=== PATIENT | male | born 1940 | race Caucasian/White ===

== ENCOUNTER → 2017-10-15 | Day surgery (SDC) | payer MEDICARE ==
[2017-10-14 11:07] VITALS: BMI 30.7
--- NOTE | 2017-10-15 16:03 | EKG ---
Test Reason : PREOP CARDIOVERSION Blood Pressure : / mmHG Vent. Rate : 066 BPM Atrial Rate : 066 BPM P-R Int : 274 ms QRS Dur : 112 ms QT Int : 434 ms P-R-T Axes : 067 045 070 degrees QTc Int : 454 ms Sinus rhythm with 1st degree A-V block with Premature atrial complexes Incomplete right bundle branch block Abnormal ECG Confirmed by IAIN ALBARADO ([id number]) on 10/15/2017 4:03:09 PM Referred By: SIMONE Confirmed By:IAIN ALBARADO
== END ==
LOC: CCL 09:48
PROVIDERS: ATTEND Internal Medicine Cardiovascular Disease
DX: I48.1 Persistent atrial fibrillation (principal); E78.5 Hyperlipidemia, unspecified; I10 Essential (primary) hypertension; E11.9 Type 2 diabetes mellitus without complications; Z53.8 Procedure and treatment not carried out for other reasons; Z79.01 Long term (current) use of anticoagulants; Z79.899 Other long term (current) drug therapy; Z90.49 Acquired absence of other specified parts of digestive tract; Z98.890 Other specified postprocedural states
CPT/HCPCS: 93005; 93010

== ENCOUNTER 2018-04-24 10:54 | Outpatient (CLI) | payer MEDICARE ==
[2018-04-24 12:24] LABS: Hemoglobin 13.8 g/dL (14.0-18.0); Mean Corpuscular HGB CONC 35.8 g/dL (32.0-36.0); Mean Corpuscular Hemoglobin 33.9 pg (27.0-31.0); Mean Corpuscular Volume 94.6 fL (78.0-98.0); Mean Platelet Volume 6.7 fL (7.4-10.4); Platelet Count 206 thou/uL (130-400); RBC Distribution Width 12.3 % (11.5-14.5); Red Blood Cell (RBC) Count 4.08 mill/uL (4.70-6.10); White Blood Cell (WBC) Count 5.3 thou/uL (4.8-10.8)
[2018-04-24 12:26] LABS: INR-International Normal Ratio 1.8; PTT 41.4 SEC (22.9-36.1); Prothrombin Time 20.7 SEC (12.0-14.7)
[2018-04-24 12:31] LABS: Anion Gap 10 mmol/L (10-20); BUN (Urea Nitrogen) 13 mg/dL (8.4-25.7); Calc. Creatinine Clearance 0 mL/min (70-130); Calcium 9.4 mg/dL (7.8-10.44); Carbon Dioxide 29 mmol/L (23-31); Chloride 91 mmol/L (98-107); Estimated GFR-MDRD 52; Glucose 98 mg/dL (83-110); Potassium 3.7 mmol/L (3.5-5.1); Sodium 126 mmol/L (136-145)
--- NOTE | 2018-04-24 17:12 | EKG ---
Test Reason : Blood Pressure : / mmHG Vent. Rate : 063 BPM Atrial Rate : 063 BPM P-R Int : 238 ms QRS Dur : 092 ms QT Int : 398 ms P-R-T Axes : 058 065 084 degrees QTc Int : 407 ms Sinus rhythm with 1st degree A-V block Incomplete right bundle branch block Anterior infarct , age undetermined Abnormal ECG Confirmed by IAIN ALBARADO ([id number]) on 04/24/2018 5:11:57 PM Referred By: MARCE Confirmed By:IAIN ALBARADO
== END 2018-04-24 10:55 | disposition home or self-care (01) ==
LOC: LABBT 10:54
PROVIDERS: ATTEND Surgery
DX: Z01.818 Encounter for other preprocedural examination (principal); M51.16 Intervertebral disc disorders with radiculopathy, lumbar region
CPT/HCPCS: 80048; 85027; 85610; 85730; 93005; 93010

== ENCOUNTER 2018-05-01 07:52 | Day surgery (SDC) | payer MEDICARE ==
[2018-04-24 11:25] VITALS: BMI 29.6
[2018-05-01] MEDS ORDERED: CEFAZOLIN/Water 2 GM/20 ML SYRINGE ONE (08:56)
[2018-05-01] MEDS ORDERED: Bacitracin Zinc Ointment 30 gm TUBE ONE (11:54)
[2018-05-01] MEDS ORDERED: Thrombin 5000 UNITS/5 ML VIAL ONE (11:54)
[2018-05-01] MEDS ORDERED: Sodium Chloride 0.9% 10 ML ONE (11:55)
[2018-05-01] MEDS ORDERED: Fentanyl 100 MCG/2 ML VIAL ONE ×2 (12:19→15:08)
[2018-05-01] MEDS ORDERED: Lidocaine 1% PF 5 ML VIAL ONE ×2 (14:10)
[2018-05-01] MEDS ORDERED: Glycopyrrolate 0.2 MG/ML 5 ML SYRINGE ONE ×2 (14:10)
[2018-05-01] MEDS ORDERED: PHENYLEPHRINE-NS 100 MCG/ML 10 ML SYRINGE ONE (14:10)
[2018-05-01] MEDS ORDERED: Ondansetron HCl/PF 4 MG/2 ML Vial ONE (14:10)
[2018-05-01] MEDS ORDERED: Vecuronium 10 MG VIAL ONE (14:10)
[2018-05-01] MEDS ORDERED: Dexamethasone 20 MG/5 ML VIAL ONE (14:10)
[2018-05-01] MEDS ORDERED: PROPOFOL 200 MG/20 ML VIAL ONE (14:10)
[2018-05-01] MEDS ORDERED: Meperidine HCl/PF 25 MG/ML VIAL SLOW IVP PRN (14:22)
[2018-05-01] MEDS ORDERED: Promethazine HCl 25 MG/ML VIAL SLOW IVP PRN (14:22)
[2018-05-01] MEDS ORDERED: Morphine Sulfate 2 MG/ML SYRINGE SLOW IVP PRN (14:22)
[2018-05-01] MEDS ORDERED: HYDROmorphone 2 MG/ML VIAL SLOW IVP PRN (14:22)
[2018-05-01] MEDS ORDERED: Promethazine HCl 25 MG/ML VIAL IM PRN ×2 (14:22→14:55)
[2018-05-01] MEDS ORDERED: Ondansetron HCl/PF 4 MG/2 ML Vial IVP PRN (14:22)
[2018-05-01] MEDS ORDERED: traMADol HCl 50 MG TAB PO PRN (14:55)
[2018-05-01] MEDS ORDERED: Mag-Al 1200 mg/1200 mg/30 ML UDCUP PO PRN (14:55)
[2018-05-01] MEDS ORDERED: Bisacodyl 10 MG SUPP PR PRN (14:55)
[2018-05-01] MEDS ORDERED: Fleet Enema 133 ML BOT PR PRN (14:55)
[2018-05-01] MEDS ORDERED: Milk Of Magnesia 30 ML UDCUP PO PRN (14:55)
[2018-05-01] MEDS ORDERED: Acetaminophen 325 MG TAB PO PRN (14:55)
[2018-05-01] MEDS ORDERED: Acetaminophen/Codeine 30-300mg Tablet PO PRN (14:58)
[2018-05-01] MEDS ORDERED: Docusate 100 MG CAP PO PRN (14:59)
[2018-05-01] MEDS ORDERED: Citrucel 500 MG TAB PO PRN (14:59)
[2018-05-01] MEDS: tiZANidine HCl 4 MG TAB PO PRN (18:02)
[2018-05-01] MEDS: Sodium Chloride 0.9% 1,000 ML IV SCH (18:03)
[2018-05-01] MEDS: HYDROcodone/Acetaminophen 7.5/325 mg Tablet PO PRN ×2 (18:03→22:00)
[2018-05-01] MEDS: Flecainide 50 MG TAB PO SCH (20:50)
[2018-05-01] MEDS ORDERED: Calcium Carbonate 500 MG ChewTAB PO SCH (21:00)
[2018-05-01] MEDS ORDERED: Atorvastatin Calcium 40 MG TAB PO SCH (21:00)
[2018-05-01] MEDS ORDERED: Amlodipine 5 MG TAB PO SCH (21:00)
[2018-05-01] MEDS: CEFAZOLIN/Water 2 GM/20 ML SYRINGE SLOW IVP SCH (22:01)
[2018-05-02] MEDS: tiZANidine HCl 4 MG TAB PO PRN (00:08)
[2018-05-02] MEDS: Sodium Chloride 0.9% 1,000 ML IV SCH (04:38)
[2018-05-02 05:30] VITALS: TEMP 97.5
[2018-05-02] MEDS: HYDROcodone/Acetaminophen 7.5/325 mg Tablet PO PRN ×2 (05:51→10:11)
[2018-05-02] MEDS: CEFAZOLIN/Water 2 GM/20 ML SYRINGE SLOW IVP SCH (05:52)
[2018-05-02 07:46] VITALS: BP 136/82
[2018-05-02] MEDS: Flecainide 50 MG TAB PO SCH (07:47)
[2018-05-02] MEDS ORDERED: Hydrochlorothiazide 25 MG TAB PO SCH (09:00)
[2018-05-02] MEDS ORDERED: Losartan 25 MG TAB PO SCH (09:00)
--- NOTE | 2018-05-02 14:03 | PRG ---
DATE OF SERVICE: 05/02/2018 NEUROSURGICAL PROGRESS NOTE I saw Mr. Esparza in his hospital room this morning. He is resting comfortably following surgery yesterday. The patient is moving all four extremities. He denies any radicular symptoms at this time. His vital signs were stable throughout the night. No fevers reported. Blood pressure was in the 130s and he is getting 95% on room air. Once pt. demonstrates he can transfer in and out of bed safely, use the restroom , and hold down a meal he is ready for discharge home. SHEY
--- NOTE | 2018-05-05 10:18 | OP ---
DATE OF PROCEDURE: 05/01/2018 SURGEON: Baldo Zavala M.D. [employer]ONGE HOOKING: Gilson Apodaca PA-C. PREPROCEDURE DIAGNOSES: Left L4-L5 radiculopathy with stenosis and disk extrusion and compression of the traversing left L5 nerve root with foraminal disk extrusion compressing the exiting left L4 nerv e root. POSTPROCEDURE DIAGNOSES: Left L4-L5 radiculopathy with stenosis and disk extrusion and compression o f the traversing left L5 nerve root with foraminal disk extrusion compressing the exiting left L4 ner ve root. PROCEDURE: 1. Left L4-L5 hemilaminotomy, foraminotomy, and diskectomy. 2. Left transfacet approach for far lateral diskectomy for decompression of the exiting left L4 nerv e root. 3. Use of operative microscope for microdissection. DESCRIPTION OF PROCEDURE: After informed consent was obtained, the patient was brought to OR. Prope r patient pause and identification was carried out. He was placed under excellent endotracheal anest hesia and positioned prone on the OR table. All appropriate points were padded. We identified the L 4-L5 dorsal spines. A linear skye was made over this region. This area was sterilely cleansed, prep ared, and draped. Proper patient pause and identification was carried out. The wound was then opene d with a combination of sharp, monopolar and blunt dissection, left L4-L5 hemilamina were exposed margoth ng the left 3-4 facet complex that would allow for transfacet approach to decompress the exiting left L4 nerve root, due to the foraminal disk herniation, also the paracentral herniation. Localization film confirmed our area of interest. We then performed a left L4-L5 standard hemilaminotomy, foramin otomy approach and then we were able to bring the microscope in and disk material was removed in the paracentral region to decompress the traversing left L5 root. We then turned our attention to the tr ansfacet approach and skeletonizing the left L4 nerve root and identified in the foramen and identifi ed foraminal disk material that was herniated. This was removed. We had excellent decompression of the left L4 and left L5 nerve root. Copious irrigation occurred throughout. The wound was then maxi marybeth hemostased and closed in anatomic layers following sprinkle vancomycin powder. The patient the n emerged from anesthesia.
== END 2018-05-02 11:52 | disposition home or self-care (01) ==
LOC: SDC 07:52 → SURG A 15:55 → SDC 05-02 11:52
PROVIDERS: ATTEND Surgery
PROC: 01NB0ZZ Release Lumbar Nerve, Open Approach (ICD-10-PCS; principal; 2018-05-01)
DX: M48.061 Spinal stenosis, lumbar region without neurogenic claudication (principal); M51.16 Intervertebral disc disorders with radiculopathy, lumbar region; I48.91 Unspecified atrial fibrillation; Z79.01 Long term (current) use of anticoagulants; Z79.899 Other long term (current) drug therapy
CPT/HCPCS: 76001; 86850; 86900; 86901; 96374; 96375; 96376; A4216; J1100; J2001; J2405; J2704; J3010; J3370; J3490

== ENCOUNTER 2018-09-02 15:06 | Outpatient (CLI) | payer MEDICARE ==
--- NOTE | 2018-09-02 16:55 | RAD ---
RIGHT HIP: 09/02/18 Two views. HISTORY: Right hip pain. Bursitis. Femoral head contour is normal. No fracture or significant degenerative change. No acute osseous abno rmality. IMPRESSION: Unremarkable right hip. POS: [facility]
== END 2018-09-02 15:07 | disposition home or self-care (01) ==
LOC: BICRAD 15:06
PROVIDERS: ATTEND Surgery
DX: M70.71 Other bursitis of hip, right hip (principal); M25.551 Pain in right hip

== ENCOUNTER 2018-12-08 07:23 | Outpatient (CLI) | payer MEDICARE ==
--- NOTE | 2018-12-08 09:15 | MRI ---
MRI OF RIGHT HIP PERFORMED WITHOUT CONTRAST ENHANCEMENT: Date: 12/08/18 HISTORY: Right hip pain for approximately 1 year. Patient states he did fall about 1 month ago. COMPARISON: 09/02/18 plain film examination. FINDINGS: The SI joints are symmetric in appearance. There are no signs of any pelvic insufficiency fractures. There are some minimal tendinosis changes of the hamstring tendon origin on the right. The gluteus minimus and medius tendon are unremarkable. There is atrophy associated with the gluteus minimus muscle. There are subchondral cystic changes involving the anterior superior acetabulum. I do not appreciate any definite hip labral abnormalities. Assessment of the hip labrum on this examination is very limit ed due to somewhat poor signal to noise. There does appear to be some mild articular cartilage loss a long the anterior superior acetabulum. IMPRESSION: 1. Minimal tendinosis of the right hamstring tendon origin. 2. Subchondral cystic change involving the anterior superior acetabulum with some minimal underlying articular cartilage loss. POS: [facility]
--- NOTE | 2018-12-08 10:00 | MRI ---
PRE AND POSTCONTRAST ENHANCED MRI LUMBAR SPINE: HISTORY: Low back pain, M54.5. COMPARISON: By history, the patient had previous MRI at [facility] in 2018; however, no previous comparison studies exist on the patient's medical records on the PACS system. Could this have been done at another institution? FINDINGS: T12-L1: Unremarkable L1-2: No significant degree of central stenosis or neural foraminal narrowing seen. L2-3: There is mild disc desiccation seen. There is minimal facet hypertrophy seen. Small amount of L 2-3 fluid seen. The central canal and neural foramen are patent. L3-4: Disc desiccation seen. There is a broad-based disc bulge with bilateral facet and ligamentum fl avum hypertrophy. This results in a moderate degree of L3-4 central and lateral recess stenosis. The neural foramen are patent. There is a signal abnormality seen in the L4 vertebral level. There is superior inferior vertebral michelle dy height loss with what appears to be a compression involving the superior L4 vertebral endplate. There is increased signal on T2-weighted sequences. There is also enhancement of the majority of this vertebral body. Findings concerning for L4 vertebral body hemangioma with secondary fracture versus more aggressive type neoplasia of the L4 vertebra. Comparison with previous old exam would be of great value. It is strongly recommended that old MRI images be obtained for comparison so we can help differentiate between whether this is a metastatic lesion or large L4 hemangioma which is second arily fractured. L4-5: There is a broad-based disc bulge seen with moderate compression of the thecal sac. The patient has had a left-sided L4 laminectomy and partial facetectomy. No evidence of recurrent disc protrusion seen. Postsurgical scarring is seen in the epidural space. L5-S1: Severe bilateral facet hypertrophy seen. The central canal is patent. There is moderate right and mild left-sided neural foraminal narrowing due to the facet hypertrophy. IMPRESSION: 1. Bilateral L4-5 neural foraminal narrowing. 2. Signal abnormality seen in the L4 vertebral body with edema in the vertebral level of L4 as well as some enhancement. Differential diagnosis includes possible hemangioma with secondary L4 fracture versus other neoplastic involvement including metastatic disease or lymphoma Transcribed Date/Time: 12/08/2018 10:16 AM
[2018-12-08] MEDS ORDERED: Gadobenate Dimeglumine 529 MG/1 ML (20ML VIAL) ONE (10:12)
--- NOTE | 2018-12-08 10:39 | RAD ---
RIGHT HIP 2 VIEWS: Date: 12/08/18 HISTORY: Hip pain. FINDINGS: Joint space fairly well preserved without any significant arthritic change. No fractures or other bon y findings. IMPRESSION: No evidence of any significant joint space narrowing, fracture, or other findings. POS: [facility]
--- NOTE | 2018-12-08 10:41 | RAD ---
LUMBAR SPINE SERIES 4 VIEWS: Date: 12/08/18 HISTORY: Low back pain. FINDINGS: There are compression changes involving the superior and to the lesser extent the inferior end plate of L4. The remainder of the vertebral bodies maintain normal height. Degenerative osteophytes are see n. There is not a significant degree of disc narrowing noted. Pedicles are intact. Degenerative facet changes of the lower lumbar spine are noted. Moderate atherosclerotic changes are seen. IMPRESSION: 1. Moderate compression changes involving L4, mainly related to superior end plate compression giles e, which may be on the basis of osteoporosis. 2. Arthritic changes of spine, mainly related to degenerative facet changes. POS: [facility]
== END 2018-12-08 07:24 | disposition home or self-care (01) ==
LOC: BICMRI 07:23
PROVIDERS: ATTEND Surgery
DX: M25.551 Pain in right hip (principal); M54.5 Low back pain; M47.816 Spondylosis without myelopathy or radiculopathy, lumbar region; M48.061 Spinal stenosis, lumbar region without neurogenic claudication; R60.0 Localized edema; M76.891 Other specified enthesopathies of right lower limb, excluding foot; M85.68 Other cyst of bone, other site
CPT/HCPCS: 72110; 72158; 82565; A9577

== ENCOUNTER 2019-01-21 10:12 | Outpatient (CLI) | payer MEDICARE ==
--- NOTE | 2019-01-21 10:47 | RAD ---
XR Lumbar Spine 2 Or 3 View: 01/21/2019 12:00 AM CLINICAL INDICATION: History of fracture, follow-up COMPARISON: 12/08/2018 FINDINGS: Fracture:Stable height loss of L4 vertebral body. Arthropathy:Multilevel moderate degenerative change remains, throughout lumbar spine. Incidental findings:Prominent atherosclerosis. IMPRESSION: Grossly stable L4 compression fracture.
== END 2019-01-21 10:13 | disposition home or self-care (01) ==
LOC: TBSIIMAG 10:12
PROVIDERS: ATTEND Surgery
DX: M51.16 Intervertebral disc disorders with radiculopathy, lumbar region (principal); M48.061 Spinal stenosis, lumbar region without neurogenic claudication; S22.008A Other fracture of unspecified thoracic vertebra, initial encounter for closed fracture; S32.049D Unspecified fracture of fourth lumbar vertebra, subsequent encounter for fracture with routine healing
CPT/HCPCS: 72100

== ENCOUNTER 2019-03-02 13:07 | Outpatient (CLI) | payer MEDICARE ==
--- NOTE | 2019-03-02 14:19 | RAD ---
RADIOGRAPH LUMBAR SPINE 2 VIEWS: DATE: 03/02/2019 HISTORY: 78-year-old male with chronic low back pain. Follow-up compression fracture. COMPARISON: 01/21/2019 FINDINGS: There are 5 lumbar-type vertebrae. The mild loss of height of L4 vertebra is unchanged, with depressi on of the superior endplate. Mild chronic bony retropulsion of posterior superior endplate. The rest of the vertebral body heights are maintained. High-grade facet DJD at L5-S1. Predominantly mild disc space narrowing at multiple levels. No interval change overall. IMPRESSION: 1. Nonacute L4 compression fracture, unchanged. 2. Lumbar spondylosis.
== END 2019-03-02 13:08 | disposition home or self-care (01) ==
LOC: TBSIIMAG 13:07
PROVIDERS: ATTEND Surgery
DX: M54.5 Low back pain (principal); M48.56XA Collapsed vertebra, not elsewhere classified, lumbar region, initial encounter for fracture; M47.816 Spondylosis without myelopathy or radiculopathy, lumbar region
CPT/HCPCS: 72100

== ENCOUNTER 2019-09-09 09:24 | Outpatient (CLI) | payer MEDICARE ==
--- NOTE | 2019-09-09 10:37 | CT ---
Lumbar spine CT without contrast: 09/09/2019 COMPARISON: Lumbar spine radiograph 12/08/2018: Back pain, osteoporosis TECHNIQUE: Axial CT imaging at 3 mm intervals through the lumbar spine without contrast. Coronal and sagittal reformatted imaging obtained. FINDINGS: The abdominal aorta demonstrates extensive atherosclerotic calcification, not optimally ass essed on noncontrast enhanced imaging. Partially imaged sigmoid colon demonstrates diverticulosis. There is a chronic superior endplate fracture of the L4 vertebral body, as seen on prior studies incl uding radiographs dating back to 12/08/2018. There is approximately 50% loss of vertebral body height centrally associated with the L4 fracture. T12-L1: Mild anterior osteophyte formation with no osseous cause of significant central canal or neur al foraminal stenosis L1-2: Mild anterior osteophyte formation. No osseous cause of significant central canal or neural for aminal stenosis. L2-3: There is anterior osteophyte formation. There is no osseous cause of significant central canal or right neural foraminal stenosis. Probable mild left neural foraminal stenosis on the basis of facet hypertrophy. L3-4: Mild bilateral facet hypertrophy and hypertrophy of the ligamentum flavum as well as mild disc bulge present with mild/moderate central canal stenosis. Mild bilateral neural foraminal stenosis, right greater than left. L4-5: The patient appears status post hemilaminectomy on the left. Bilateral facet hypertrophy is not ed. Evidence of prior left-sided facetectomy present. Moderate/severe bilateral neural foraminal stenosis is suspected, left greater than right. There is mild/moderate central canal stenosis with pr obable associated left lateral recess stenosis. L5-S1: There is bilateral facet hypertrophy, right greater than left, with severe right and mild/mode rate left neural foraminal stenosis. Disc bulge suspected with probable mild central canal stenosis. There is no worrisome lytic or blastic bone lesion. No acute fracture or dislocation. IMPRESSION: Postoperative and degenerative change within the lumbar spine as detailed above.
--- NOTE | 2019-09-09 10:54 | RAD ---
4 views lumbar spine: 09/09/2019 COMPARISON: 03/02/2019 HISTORY: Pain, history of fracture FINDINGS: There is a stable superior endplate fracture of the L4 vertebral body with approximately 50 % loss of vertebral body height centrally. There is disc space narrowing with anterior osteophyte formation at L1-2, L2-3, and L3-4, stable as well. Significant facet hypertrophy is noted at L4-5 and L5-S1. There is atherosclerotic calcification of the abdominal aorta. Neutral, flexion, and extension lateral imaging demonstrates no significant anterolisthesis or retrolisthesis. IMPRESSION: Chronic findings as described above.
--- NOTE | 2019-09-09 13:59 | MRI ---
MRI LUMBAR SPINE WITH AND WITHOUT CONTRAST: Date: 09/09/2019 COMPARISON: 12/08/2018. HISTORY: Low back pain since 2018. Patient fell in 2018. Previous lumbar surgery in April 2018. COMPARISON: 12/08/2018. CORRELATION: CT lumbar spine 09/09/2019. FINDINGS: Appropriate T1 marrow signal intensity of the lumbar vertebra. Lumbar spine vertebral body heights ar e maintained from L1 through L3 and L5. There is mild loss of vertebral body height without significa nt edema or retropulsion at the L4 level. The overall degree of loss of vertebral body height at L4. A small Schmorl's node along the superior end plate of L4 is noted. Appropriate signal intensity of the visualized paraspinal muscles and solid organs. Bilateral paracol ic cysts are noted. Conus medullaris terminates at the mid to lower aspect of L1. Postcontrast images do not demonstrate any abnormal enhancement with regards to the vertebral bodies. There is no abnormal enhancement within the thecal sac, including the cauda equina and conus medulla ris. T12-L1: Adequate disc hydration. No significant central canal stenosis or neural foraminal narrowing . L1-L2: Adequate disc hydration. Mild loss of disc space height, unchanged. No significant posterior disc abnormality. Mild ligamentum flavum thickening and facet hypertrophy. No significant central can al stenosis or significant neural foraminal narrowing. L2-L3: Stable disc desiccation without significant loss of disc space height. No significant posteri or disc abnormality. No significant central canal stenosis. Small amount of fluid in both facet joint s with mild facet hypertrophy. Mild to moderate bilateral foraminal narrowing due to disc material an d posterior element hypertrophy. L3-L4: Adequate disc hydration without significant loss of disc space height. Broad based disc bulge , ligamentum flavum thickening, and facet hypertrophy are noted. There is also evidence of a bilatera l small synovial cyst, unchanged. Overall, there is moderate central canal stenosis which appears to have progressed when compared to the previous examination. Progression of central canal stenosis is, in part, due to disc material and to a lesser extent, prominence of previously noted synovial cyst. T he right synovial cyst measures 0.6 cm. The left synovial cyst measures 0.4 cm. Moderate to severe ri ght and moderate left neural foraminal narrowing, unchanged. L4-L5: Disc desiccation with stable loss of disc space height. There is a broad based disc bulge wit h a central and left subarticular disc protrusion. There is mild central canal stenosis. There is enc roachment upon the left subarticular zone secondary to disc material. Disc material does contact but not obscure the traversing left L5 nerve root. Questionable associated annular fissure in the left chi barticular zone. Moderate right and severe left neural foraminal narrowing. L5-S1: Desiccation without significant loss of disc space height. Broad based disc bulge without ass ociated significant central canal stenosis. 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 Bilateral facet hypertrophy. Moderate to severe right and mild to moderate left neur al foraminal narrowing. Postcontrast images demonstrate enhancing scar tissue in the left subarticular zone at L4-L5. Enhanci ng scar tissue is noted at the left L5 facetectomy defect/laminectomy defect. Additionally, there is enhancing scar tissue in the midline subcutaneous fat. IMPRESSION: 1. Postsurgical change with left facetectomy at L4. There is enhancing scar tissue at the operative site. There is narrowing of the left subarticular zone predominantly due to disc material. Component of scar tissue in the left subarticular zone cannot be entirely excluded. There does appear to be an annular fissure involving the posterior margin of the L4-L5 disc, at the level of left subarticular z one. 2. Varying degrees of neural foraminal narrowing and central canal stenosis as described above. 3. Stable compression fracture at L4. POS: [facility]
[2019-09-09] MEDS ORDERED: Magnevist 469MG/ML 20 ML VIAL ONE (14:22)
== END 2019-09-09 09:25 | disposition home or self-care (01) ==
LOC: BICCT 09:24
PROVIDERS: ATTEND Physician Assistant Surgical
DX: M54.5 Low back pain (principal); M80.88XD Other osteoporosis with current pathological fracture, vertebra(e), subsequent encounter for fracture with routine healing; M47.816 Spondylosis without myelopathy or radiculopathy, lumbar region; M48.061 Spinal stenosis, lumbar region without neurogenic claudication; Z98.890 Other specified postprocedural states
CPT/HCPCS: 72120; 72131; 72158; 82565; A9579

== ENCOUNTER 2021-10-03 13:24 | Outpatient (CLI) | payer MEDICARE | END 2021-10-03 13:25 | disposition home or self-care (01) | LOC: TBSIIMAG 13:24 | PROVIDERS: ATTEND Physician Assistant | DX: M54.50 Low back pain, unspecified (principal); W19.XXXD Unspecified fall, subsequent encounter | CPT/HCPCS: 72100 ==

== ENCOUNTER 2023-07-10 18:13 | Inpatient (IN) | payer MEDICARE ==
[~2023-07-10 18:13] MED LIST: Iopamidol-370 76% 500 ML MDV (1 ML CHARGE) ONE
[2023-07-10 20:25] LABS: #Monocytes 0.9 thou/uL (0.11-0.59); #Neutrophils 6.4 thou/uL (1.40-6.50); %Basophils 0.1 % (0.0-1.0); %Lymphocytes 6.6 % (21.0-51.0); %Monocytes 11.8 % (0.0-10.0); %Neutrophils 81.2 % (42.0-75.0); Hematocrit 51.4 % (42.0-52.0); Hemoglobin 17.9 g/dL (14.0-18.0); Mean Corpuscular HGB CONC 34.8 g/dL (32.0-36.0); Mean Corpuscular Hemoglobin 33.8 pg (27.0-31.0); Platelet Count 225 10x3/uL (130-400); RBC Distribution Width 12.7 % (11.5-14.5); White Blood Cell (WBC) Count 7.9 10x3/uL (4.8-10.8)
[2023-07-10 20:45] LABS: Troponin I 0.012 ng/mL (< 0.028)
[2023-07-10 20:59] LABS: ALT (SGPT) 16 U/L (8-55); AST (SGOT) 27 U/L (5-34); Albumin 4.2 g/dL (3.4-4.8); Alkaline Phosphatase 106 U/L (40-110); Anion Gap 20 mmol/L (10-20); BUN (Urea Nitrogen) 36 mg/dL (8.4-25.7); Bilirubin, Total 1.3 mg/dL (0.2-1.2); Calc. Creatinine Clearance 0 mL/min (70-130); Calcium 9.6 mg/dL (7.8-10.44); Carbon Dioxide 20 mmol/L (23-31); Chloride 94 mmol/L (98-107); Estimated GFR 43; Globulin 3.1 g/dL (2.4-3.5); Glucose 132 mg/dL (83-110); Lipase 34 U/L (8-78); Potassium 4.1 mmol/L (3.5-5.1); Protein, Total 7.3 g/dL (5.8-8.1); Sodium 130 mmol/L (136-145)
[2023-07-10] MEDS ORDERED: dilTIAZem 125 MG/25 ML SDV ONE (21:42)
[2023-07-11 00:50] LABS: Lactic Acid 1.9 mmol/L (0.5-2.2)
[2023-07-11 01:11] LABS: INR-International Normal Ratio 1.4; PTT 36.5 sec (22.9-36.1); Prothrombin Time 17.3 sec (12.0-14.7)
[2023-07-11] MEDS ORDERED: Ondansetron ODT 4 MG TAB PO PRN (01:14)
[2023-07-11] MEDS ORDERED: Acetaminophen 650 MG Suppository PR PRN (01:14)
[2023-07-11] MEDS ORDERED: Acetaminophen 325 MG TAB PO PRN (01:14)
[2023-07-11] MEDS ORDERED: Bisacodyl 10 MG SUPP PR PRN (01:14)
[2023-07-11] MEDS ORDERED: Ondansetron PF 4 MG/2 ML Vial IVP PRN ×3 (01:14→18:53)
[2023-07-11] MEDS ORDERED: hydrALAZINE 20 MG/ML VIAL SLOW IVP PRN (01:18)
[2023-07-11] MEDS ORDERED: Docusate 100 MG CAP PO PRN (01:31)
[2023-07-11] MEDS ORDERED: Amlodipine 5 MG TAB PO SCH (01:45)
[2023-07-11] MEDS ORDERED: Lidocaine 4% Patch TD SCH (02:00)
[2023-07-11] MEDS ORDERED: Amlodipine 5 MG TAB ONE (02:32)
[2023-07-11] MEDS: Lactated Ringer's 1,000 ML IV SCH ×2 (02:47→09:53)
[2023-07-11 04:59] LABS: #Monocytes 0.9 thou/uL (0.11-0.59); #Neutrophils 5.1 thou/uL (1.40-6.50); %Basophils 0.2 % (0.0-1.0); %Lymphocytes 6.1 % (21.0-51.0); %Monocytes 14.3 % (0.0-10.0); %Neutrophils 79.2 % (42.0-75.0); Hematocrit 48.2 % (42.0-52.0); Hemoglobin 16.9 g/dL (14.0-18.0); Mean Corpuscular HGB CONC 35.1 g/dL (32.0-36.0); Mean Corpuscular Hemoglobin 33.7 pg (27.0-31.0); Mean Platelet Volume 9.6 fL (7.4-10.4); Platelet Count 171 10x3/uL (130-400); RBC Distribution Width 12.7 % (11.5-14.5); Red Blood Cell (RBC) Count 5.02 mill/uL (4.70-6.10); White Blood Cell (WBC) Count 6.4 10x3/uL (4.8-10.8)
[2023-07-11 05:27] LABS: Anion Gap 17 mmol/L (10-20); BUN (Urea Nitrogen) 37 mg/dL (8.4-25.7); Calc. Creatinine Clearance 48 mL/min (70-130); Calcium 8.4 mg/dL (7.8-10.44); Carbon Dioxide 19 mmol/L (23-31); Chloride 97 mmol/L (98-107); Estimated GFR 51; Glucose 112 mg/dL (83-110); Potassium 4.4 mmol/L (3.5-5.1); Sodium 129 mmol/L (136-145)
[2023-07-11 05:32] LABS: Phosphorus 3.3 mg/dL (2.3-4.7)
[2023-07-11] MEDS ORDERED: Multivit, Therapeutic 1 TAB PO SCH (09:00)
[2023-07-11] MEDS: Carvedilol 25 MG TAB PO SCH (09:04)
[2023-07-11] MEDS: Apixaban 5 MG TAB PO SCH ×2 (09:04→22:53)
[2023-07-11] MEDS: Losartan 25 MG TAB PO SCH (09:05)
[2023-07-11] MEDS: Oxybutynin ER 5 MG TAB PO SCH ×2 (09:05→22:54)
[2023-07-11] MEDS ORDERED: Fleet Saline Enema 133 ML BOT PR SCH (10:15)
[2023-07-11] MEDS ORDERED: Fleet Saline Enema 133 ML BOT ONE (10:25)
[2023-07-11] MEDS ORDERED: Ondansetron HCl/PF 4 MG/2 ML Vial IVP PRN ×2 (11:44→17:37)
[2023-07-11] MEDS ORDERED: Promethazine HCl 25 MG/ML VIAL IM PRN ×2 (11:44→17:45)
[2023-07-11] MEDS ORDERED: Ondansetron PF 4 MG/2 ML Vial ONE ×3 (11:50→17:28)
[2023-07-11] MEDS ORDERED: PROPOFOL 200 MG/20 ML VIAL ONE ×2 (11:50→14:36)
[2023-07-11] MEDS ORDERED: Succinylcholine 200 MG/10 ml SYRINGE FS ONE (11:50)
[2023-07-11] MEDS ORDERED: PHENYLEPHRINE-NS 100 MCG/ML 10 ML SYRINGE ONE ×4 (11:50→16:00)
[2023-07-11] MEDS ORDERED: Lidocaine 1% PF 5 ML VIAL ONE ×2 (11:50→14:36)
[2023-07-11] MEDS ORDERED: Piperacillin/Tazobactam 3.375 GM in Sodium Chloride 0.9% 100 ML IVPB SCH ×2 (12:45→14:00)
[2023-07-11] MEDS ORDERED: Vasopressin 20 UNITS/ML VIAL ONE (13:50)
[2023-07-11] MEDS ORDERED: Rocuronium Bromide 10 MG/ML (10ML VIAL) ONE ×2 (14:06→14:36)
[2023-07-11] MEDS ORDERED: fentaNYL PF 100 MCG/2 ML SYRINGE ONE ×3 (14:07→17:10)
[2023-07-11] MEDS ORDERED: ePHEDrine Sulfate 50 MG/10 ML VIAL ONE (14:07)
[2023-07-11] MEDS ORDERED: CEFAZOLIN 2 GM VIAL ONE (14:14)
[2023-07-11] MEDS ORDERED: Sodium Chloride 0.9% 100 ML ONE (14:14)
[2023-07-11] MEDS ORDERED: Calcium Chloride 1 GM/10 ML Abboject SYRINGE ONE ×2 (14:36→16:26)
[2023-07-11] MEDS ORDERED: Dexamethasone 20 MG/5 ML VIAL ONE (14:36)
[2023-07-11] MEDS ORDERED: SUGAMMADEX SODIUM 200 MG/2 ML VIAL ONE ×2 (16:26→16:27)
[2023-07-11] MEDS ORDERED: Labetalol HCl 100 MG/20 ML VIAL ONE (17:19)
[2023-07-11] MEDS ORDERED: Dexamethasone 4 mg/ml Vial ONE (17:28)
[2023-07-11] MEDS ORDERED: Communication Order-Pharmacy FS SCH (17:45)
[2023-07-11] MEDS ORDERED: diphenhydrAMINE 50 MG/ML VIAL IM PRN (17:45)
[2023-07-11] MEDS ORDERED: diphenhydrAMINE 25 MG CAP PO PRN (17:45)
[2023-07-11] MEDS ORDERED: FENTANYL 500 MCG/10 ML VIAL 2,000 MCG in Sodium Chloride 0.9% 60 ML IV PRN (17:45)
[2023-07-11] MEDS ORDERED: Naloxone HCl 0.4 mg/ml Vial IV PRN (17:45)
[2023-07-11] MEDS ORDERED: diphenhydrAMINE 50 MG/ML VIAL IVP PRN (17:45)
[2023-07-11] MEDS ORDERED: hydrALAZINE 20 MG/ML VIAL ONE (18:12)
[2023-07-11 20:24] VITALS: BMI 29.5
[2023-07-11] MEDS ORDERED: Calcium Carbonate 500 MG ChewTAB PO SCH (21:00)
[2023-07-11] MEDS: cefOXitin 2 GM in Sodium Chloride 0.9% 100 ML IVPB SCH (22:47)
[2023-07-11] MEDS: Amlodipine 5 MG TAB PO SCH (22:53)
[2023-07-11] MEDS: Atorvastatin Calcium 40 MG TAB PO SCH (22:54)
[2023-07-12] MEDS: Piperacillin/Tazobactam 3.375 GM in Sodium Chloride 0.9% 100 ML IVPB SCH ×4 (00:30→17:26)
[2023-07-12 04:42] LABS: #Monocytes 0.7 thou/uL (0.11-0.59); #Neutrophils 4.5 thou/uL (1.40-6.50); %Basophils 0.4 % (0.0-1.0); %Lymphocytes 3.7 % (21.0-51.0); %Monocytes 12.8 % (0.0-10.0); %Neutrophils 82.9 % (42.0-75.0); Hemoglobin 16.1 g/dL (14.0-18.0); Mean Corpuscular Hemoglobin 33.4 pg (27.0-31.0); Mean Corpuscular Volume 95.4 fl (78.0-98.0); Mean Platelet Volume 9.9 fL (7.4-10.4); Platelet Count 199 10x3/uL (130-400); RBC Distribution Width 12.9 % (11.5-14.5); Red Blood Cell (RBC) Count 4.82 mill/uL (4.70-6.10); White Blood Cell (WBC) Count 5.5 10x3/uL (4.8-10.8)
[2023-07-12 05:03] LABS: Anion Gap 19 mmol/L (10-20); BUN (Urea Nitrogen) 42 mg/dL (8.4-25.7); Calc. Creatinine Clearance 40 mL/min (70-130); Calcium 8.3 mg/dL (7.8-10.44); Carbon Dioxide 21 mmol/L (23-31); Chloride 99 mmol/L (98-107); Estimated GFR 39; Glucose 150 mg/dL (83-110); Potassium 4.1 mmol/L (3.5-5.1); Sodium 135 mmol/L (136-145)
[2023-07-12 05:55] LABS: Magnesium 1.9 mg/dL (1.6-2.6); Phosphorus 4.3 mg/dL (2.3-4.7)
[2023-07-12] MEDS: cefOXitin 2 GM in Sodium Chloride 0.9% 100 ML IVPB SCH (05:55)
[2023-07-12] MEDS ORDERED: Magnesium 2 GM/50 ML(in water) 1 GM in Premix 1 BAG IVPB SCH (07:00)
[2023-07-12] MEDS ORDERED: Lactated Ringer's 500 ML IV SCH (10:15)
[2023-07-12] MEDS: Famotidine/PF 20 mg/2ml Vial SLOW IVP SCH (10:17)
[2023-07-12] MEDS: Losartan 25 MG TAB PO SCH (12:44)
[2023-07-12] MEDS: Famotidine 20 MG TAB PO SCH (12:44)
[2023-07-12] MEDS: Apixaban 5 MG TAB PO SCH ×2 (12:44→22:15)
[2023-07-12] MEDS: Carvedilol 25 MG TAB PO SCH (12:44)
[2023-07-12] MEDS: Oxybutynin ER 5 MG TAB PO SCH ×2 (12:44→22:15)
[2023-07-12] MEDS: Lactated Ringer's 1,000 ML IV SCH ×3 (12:45→23:34)
[2023-07-12] MEDS: Amlodipine 5 MG TAB PO SCH (22:14)
[2023-07-12] MEDS: Atorvastatin Calcium 40 MG TAB PO SCH (22:15)
[2023-07-13] MEDS: Piperacillin/Tazobactam 3.375 GM in Sodium Chloride 0.9% 100 ML IVPB SCH ×3 (02:02→17:42)
[2023-07-13 04:56] LABS: #Monocytes 1.2 thou/uL (0.11-0.59); #Neutrophils 4.7 thou/uL (1.40-6.50); %Basophils 0.3 % (0.0-1.0); %Eosinophils 0.2 % (0.0-10.0); %Monocytes 18.5 % (0.0-10.0); %Neutrophils 72.1 % (42.0-75.0); Hematocrit 40.4 % (42.0-52.0); Hemoglobin 13.8 g/dL (14.0-18.0); Mean Corpuscular HGB CONC 34.2 g/dL (32.0-36.0); Mean Corpuscular Hemoglobin 33.3 pg (27.0-31.0); Mean Corpuscular Volume 97.3 fl (78.0-98.0); Mean Platelet Volume 9.3 fL (7.4-10.4); Platelet Count 195 10x3/uL (130-400); RBC Distribution Width 13.2 % (11.5-14.5); Red Blood Cell (RBC) Count 4.15 mill/uL (4.70-6.10); White Blood Cell (WBC) Count 6.5 10x3/uL (4.8-10.8)
[2023-07-13 05:29] LABS: Anion Gap 17 mmol/L (10-20); BUN (Urea Nitrogen) 45 mg/dL (8.4-25.7); Calc. Creatinine Clearance 43 mL/min (70-130); Calcium 8.3 mg/dL (7.8-10.44); Carbon Dioxide 24 mmol/L (23-31); Chloride 101 mmol/L (98-107); Estimated GFR 43; Glucose 100 mg/dL (83-110); Potassium 4.3 mmol/L (3.5-5.1); Sodium 138 mmol/L (136-145)
[2023-07-13] MEDS ORDERED: Heparin 5,000 UNITS/ML VIAL SC SCH (09:00)
[2023-07-13] MEDS: Oxybutynin ER 5 MG TAB PO SCH ×3 (09:15→20:36)
[2023-07-13] MEDS: Famotidine 20 MG TAB PO SCH ×2 (09:16→09:38)
[2023-07-13] MEDS: Carvedilol 25 MG TAB PO SCH (09:16)
[2023-07-13] MEDS: Losartan 25 MG TAB PO SCH ×2 (09:17→09:40)
[2023-07-13] MEDS: Lactated Ringer's 1,000 ML IV SCH (09:20)
[2023-07-13 09:26] LABS: Magnesium 2.3 mg/dL (1.6-2.6)
[2023-07-13] MEDS: Famotidine/PF 20 mg/2ml Vial SLOW IVP SCH (09:37)
[2023-07-13] MEDS: Sodium Chloride 0.9% 1,000 ML IV SCH (17:45)
[2023-07-13] MEDS: Amlodipine 5 MG TAB PO SCH (20:32)
[2023-07-13] MEDS: Flecainide Acetate 100 MG TAB PO SCH (20:36)
[2023-07-13] MEDS: Atorvastatin Calcium 40 MG TAB PO SCH (20:36)
[2023-07-14] MEDS: Piperacillin/Tazobactam 3.375 GM in Sodium Chloride 0.9% 100 ML IVPB SCH ×3 (02:43→18:14)
[2023-07-14] MEDS: Sodium Chloride 0.9% 1,000 ML IV SCH ×3 (02:43→21:29)
[2023-07-14] MEDS: Lactated Ringer's 1,000 ML IV SCH (03:30)
[2023-07-14 05:38] LABS: #Eosinphils 0.1 thou/uL (0.0-0.7); #Monocytes 1.1 thou/uL (0.11-0.59); #Neutrophils 4.5 thou/uL (1.40-6.50); %Basophils 0.3 % (0.0-1.0); %Eosinophils 1.1 % (0.0-10.0); %Lymphocytes 10.8 % (21.0-51.0); %Monocytes 17.1 % (0.0-10.0); %Neutrophils 69.6 % (42.0-75.0); Hematocrit 42.3 % (42.0-52.0); Hemoglobin 13.9 g/dL (14.0-18.0); Mean Corpuscular HGB CONC 32.9 g/dL (32.0-36.0); Mean Corpuscular Hemoglobin 33.4 pg (27.0-31.0); Mean Corpuscular Volume 101.7 fl (78.0-98.0); Mean Platelet Volume 9.3 fL (7.4-10.4); Platelet Count 224 10x3/uL (130-400); RBC Distribution Width 13.2 % (11.5-14.5); Red Blood Cell (RBC) Count 4.16 mill/uL (4.70-6.10); White Blood Cell (WBC) Count 6.5 10x3/uL (4.8-10.8)
[2023-07-14 06:17] LABS: Anion Gap 18 mmol/L (10-20); BUN (Urea Nitrogen) 38 mg/dL (8.4-25.7); Calc. Creatinine Clearance 56 mL/min (70-130); Calcium 8.2 mg/dL (7.8-10.44); Carbon Dioxide 22 mmol/L (23-31); Chloride 104 mmol/L (98-107); Estimated GFR 60; Glucose 79 mg/dL (83-110); Magnesium 2.3 mg/dL (1.6-2.6); Potassium 3.7 mmol/L (3.5-5.1); Sodium 140 mmol/L (136-145)
[2023-07-14] MEDS: Potassium Chloride 20 MEQ in Premix 1 BAG IVPB SCH ×2 (08:34→10:38)
[2023-07-14] MEDS: Oxybutynin ER 5 MG TAB PO SCH ×2 (08:35→21:30)
[2023-07-14] MEDS: Losartan 25 MG TAB PO SCH (08:35)
[2023-07-14] MEDS: Carvedilol 25 MG TAB PO SCH (08:35)
[2023-07-14] MEDS: Famotidine 20 MG TAB PO SCH (08:35)
[2023-07-14] MEDS: Hydrochlorothiazide 25 MG TAB PO SCH (08:35)
[2023-07-14] MEDS: dilTIAZem CD 240 MG CAP PO SCH (08:35)
[2023-07-14] MEDS: Famotidine/PF 20 mg/2ml Vial SLOW IVP SCH (08:37)
[2023-07-14] MEDS: Flecainide Acetate 100 MG TAB PO SCH ×2 (08:42→21:30)
[2023-07-14] MEDS: Apixaban 5 MG TAB PO SCH ×2 (08:42→21:30)
[2023-07-14] MEDS ORDERED: Losartan 25 MG TAB PO SCH (09:00)
[2023-07-14] MEDS: Atorvastatin Calcium 40 MG TAB PO SCH (21:30)
[2023-07-14] MEDS: Amlodipine 5 MG TAB PO SCH (21:30)
[2023-07-15] MEDS: Calcium Carbonate 500 MG ChewTAB PO PRN ×4 (02:51→20:13)
[2023-07-15] MEDS: Piperacillin/Tazobactam 3.375 GM in Sodium Chloride 0.9% 100 ML IVPB SCH ×3 (02:52→17:34)
[2023-07-15 04:59] LABS: #Eosinphils 0.1 thou/uL (0.0-0.7); #Monocytes 1.1 thou/uL (0.11-0.59); #Neutrophils 6.7 thou/uL (1.40-6.50); %Basophils 0.3 % (0.0-1.0); %Eosinophils 0.9 % (0.0-10.0); %Lymphocytes 7.9 % (21.0-51.0); %Monocytes 12.3 % (0.0-10.0); %Neutrophils 76.9 % (42.0-75.0); Hematocrit 45.4 % (42.0-52.0); Hemoglobin 14.8 g/dL (14.0-18.0); Mean Corpuscular HGB CONC 32.6 g/dL (32.0-36.0); Mean Corpuscular Volume 101.1 fl (78.0-98.0); Mean Platelet Volume 9.6 fL (7.4-10.4); Platelet Count 240 10x3/uL (130-400); Red Blood Cell (RBC) Count 4.49 mill/uL (4.70-6.10); White Blood Cell (WBC) Count 8.7 10x3/uL (4.8-10.8)
[2023-07-15] MEDS: Sodium Chloride 0.9% 1,000 ML IV SCH ×2 (05:55→16:10)
[2023-07-15 06:26] LABS: Anion Gap 18 mmol/L (10-20); BUN (Urea Nitrogen) 34 mg/dL (8.4-25.7); Calc. Creatinine Clearance 63 mL/min (70-130); Carbon Dioxide 18 mmol/L (23-31); Chloride 107 mmol/L (98-107); Estimated GFR 68; Glucose 87 mg/dL (83-110); Potassium 4.3 mmol/L (3.5-5.1); Sodium 139 mmol/L (136-145)
[2023-07-15] MEDS: Apixaban 5 MG TAB PO SCH ×2 (10:03→20:09)
[2023-07-15] MEDS: dilTIAZem CD 240 MG CAP PO SCH (10:03)
[2023-07-15] MEDS: Losartan 25 MG TAB PO SCH (10:03)
[2023-07-15] MEDS: Carvedilol 25 MG TAB PO SCH (10:03)
[2023-07-15] MEDS: Oxybutynin ER 5 MG TAB PO SCH ×2 (10:03→20:09)
[2023-07-15] MEDS: Famotidine 20 MG TAB PO SCH (10:03)
[2023-07-15] MEDS: Hydrochlorothiazide 25 MG TAB PO SCH (10:03)
[2023-07-15] MEDS: Famotidine/PF 20 mg/2ml Vial SLOW IVP SCH (10:04)
[2023-07-15] MEDS: Flecainide Acetate 100 MG TAB PO SCH ×2 (12:59→20:10)
[2023-07-15] MEDS ORDERED: Simethicone 40 MG/0.6 ML Drop 30 ML BOT PO PRN (13:34)
[2023-07-15] MEDS: Benzocaine/Menthol 1 LOZ LOZ PO PRN ×3 (14:10→20:13)
[2023-07-15] MEDS ORDERED: Polyethylene Glycol 3350 17 GM Packet PO PRN (19:23)
[2023-07-15] MEDS ORDERED: Senokot 8.6 MG TAB PO PRN (19:23)
[2023-07-15] MEDS: Atorvastatin Calcium 40 MG TAB PO SCH (20:09)
[2023-07-15] MEDS: Amlodipine 5 MG TAB PO SCH (20:09)
[2023-07-16] MEDS: Piperacillin/Tazobactam 3.375 GM in Sodium Chloride 0.9% 100 ML IVPB SCH ×3 (01:03→17:31)
[2023-07-16] MEDS: Sodium Chloride 0.9% 1,000 ML IV SCH ×3 (01:06→23:29)
[2023-07-16 06:37] LABS: #Eosinphils 0.2 thou/uL (0.0-0.7); #Monocytes 1.1 thou/uL (0.11-0.59); #Neutrophils 7.4 thou/uL (1.40-6.50); %Basophils 0.2 % (0.0-1.0); %Eosinophils 1.7 % (0.0-10.0); %Lymphocytes 7.5 % (21.0-51.0); %Monocytes 11.2 % (0.0-10.0); %Neutrophils 78.3 % (42.0-75.0); Hemoglobin 13.1 g/dL (14.0-18.0); Mean Corpuscular HGB CONC 32.8 g/dL (32.0-36.0); Mean Corpuscular Hemoglobin 33.1 pg (27.0-31.0); Mean Platelet Volume 9.2 fL (7.4-10.4); Platelet Count 280 10x3/uL (130-400); RBC Distribution Width 12.8 % (11.5-14.5); Red Blood Cell (RBC) Count 3.96 mill/uL (4.70-6.10); White Blood Cell (WBC) Count 9.4 10x3/uL (4.8-10.8)
[2023-07-16 06:41] LABS: Anion Gap 12 mmol/L (10-20); BUN (Urea Nitrogen) 32 mg/dL (8.4-25.7); Calc. Creatinine Clearance 66 mL/min (70-130); Calcium 7.5 mg/dL (7.8-10.44); Carbon Dioxide 24 mmol/L (23-31); Chloride 107 mmol/L (98-107); Estimated GFR 73; Glucose 96 mg/dL (83-110); Potassium 3.8 mmol/L (3.5-5.1); Sodium 139 mmol/L (136-145)
[2023-07-16] MEDS ORDERED: Potassium Chloride 20 MEQ in Premix 1 BAG IVPB SCH (08:00)
[2023-07-16] MEDS: Losartan 25 MG TAB PO SCH ×2 (09:08→09:09)
[2023-07-16] MEDS: Oxybutynin ER 5 MG TAB PO SCH ×2 (09:08→21:02)
[2023-07-16] MEDS: Carvedilol 25 MG TAB PO SCH (09:08)
[2023-07-16] MEDS: Hydrochlorothiazide 25 MG TAB PO SCH (09:08)
[2023-07-16] MEDS: Flecainide Acetate 100 MG TAB PO SCH ×2 (09:09→21:05)
[2023-07-16] MEDS: Naloxegol 12.5 MG TAB PO SCH (09:09)
[2023-07-16] MEDS: dilTIAZem CD 240 MG CAP PO SCH (09:09)
[2023-07-16] MEDS: Apixaban 5 MG TAB PO SCH ×2 (10:01→21:02)
[2023-07-16] MEDS ORDERED: Morphine 2 MG/ML VIAL SLOW IVP PRN (16:37)
[2023-07-16] MEDS ORDERED: Morphine 4 MG/ML VIAL SLOW IVP PRN (16:37)
[2023-07-16] MEDS ORDERED: Cyclobenzaprine 10 MG TAB PO PRN (16:37)
[2023-07-16] MEDS ORDERED: traMADol HCl 50 MG TAB PO PRN (16:37)
[2023-07-16] MEDS: Acetaminophen 325 MG TAB PO SCH ×2 (17:32→23:28)
[2023-07-16] MEDS: traMADol HCl 50 MG TAB PO SCH ×2 (17:32→23:27)
[2023-07-16] MEDS: Atorvastatin Calcium 40 MG TAB PO SCH (21:02)
[2023-07-16] MEDS: Amlodipine 5 MG TAB PO SCH (21:02)
[2023-07-16] MEDS: Calcium Carbonate 500 MG ChewTAB PO PRN (21:11)
[2023-07-16] MEDS: Benzocaine/Menthol 1 LOZ LOZ PO PRN (21:12)
[2023-07-17] MEDS: Piperacillin/Tazobactam 3.375 GM in Sodium Chloride 0.9% 100 ML IVPB SCH (01:40)
[2023-07-17 06:07] LABS: #Eosinphils 0.1 thou/uL (0.0-0.7); #Monocytes 0.8 thou/uL (0.11-0.59); #Neutrophils 9.9 thou/uL (1.40-6.50); %Basophils 0.3 % (0.0-1.0); %Eosinophils 0.9 % (0.0-10.0); %Lymphocytes 6.1 % (21.0-51.0); %Monocytes 7.2 % (0.0-10.0); %Neutrophils 84.4 % (42.0-75.0); Hematocrit 39.9 % (42.0-52.0); Hemoglobin 13.2 g/dL (14.0-18.0); Mean Corpuscular HGB CONC 33.1 g/dL (32.0-36.0); Mean Corpuscular Hemoglobin 33.4 pg (27.0-31.0); Mean Platelet Volume 9.2 fL (7.4-10.4); Platelet Count 256 10x3/uL (130-400); RBC Distribution Width 12.7 % (11.5-14.5); Red Blood Cell (RBC) Count 3.95 mill/uL (4.70-6.10); White Blood Cell (WBC) Count 11.7 10x3/uL (4.8-10.8)
[2023-07-17] MEDS: traMADol HCl 50 MG TAB PO SCH (06:11)
[2023-07-17] MEDS: Acetaminophen 325 MG TAB PO SCH ×2 (06:11→09:59)
[2023-07-17 06:50] LABS: Anion Gap 14 mmol/L (10-20); BUN (Urea Nitrogen) 33 mg/dL (8.4-25.7); Calc. Creatinine Clearance 61 mL/min (70-130); Calcium 7.9 mg/dL (7.8-10.44); Carbon Dioxide 21 mmol/L (23-31); Chloride 107 mmol/L (98-107); Estimated GFR 65; Glucose 90 mg/dL (83-110); Magnesium 1.9 mg/dL (1.6-2.6); Potassium 3.9 mmol/L (3.5-5.1); Sodium 138 mmol/L (136-145)
[2023-07-17] MEDS ORDERED: Potassium Chloride 20 MEQ TAB PO SCH (08:00)
[2023-07-17] MEDS: Carvedilol 25 MG TAB PO SCH (08:33)
[2023-07-17] MEDS: Oxybutynin ER 5 MG TAB PO SCH ×2 (08:33→20:50)
[2023-07-17] MEDS: Flecainide Acetate 100 MG TAB PO SCH ×2 (08:34→20:50)
[2023-07-17] MEDS: dilTIAZem CD 240 MG CAP PO SCH (08:34)
[2023-07-17] MEDS: Apixaban 5 MG TAB PO SCH ×2 (08:34→20:51)
[2023-07-17] MEDS: Hydrochlorothiazide 25 MG TAB PO SCH (08:34)
[2023-07-17] MEDS: Losartan 25 MG TAB PO SCH (08:34)
[2023-07-17] MEDS: Naloxegol 12.5 MG TAB PO SCH (08:34)
[2023-07-17] MEDS: Magnesium Chloride 64 MG TAB PO SCH ×2 (09:57→20:50)
[2023-07-17] MEDS ORDERED: Acetaminophen 500 MG TAB PO PRN (12:24)
[2023-07-17] MEDS: traMADol HCl 50 MG TAB PO PRN ×2 (12:57→16:06)
[2023-07-17] MEDS: Atorvastatin Calcium 40 MG TAB PO SCH (20:50)
[2023-07-17] MEDS: Amlodipine 5 MG TAB PO SCH (20:51)
[2023-07-18] MEDS: Oxybutynin ER 5 MG TAB PO SCH (08:23)
[2023-07-18] MEDS: Apixaban 5 MG TAB PO SCH (08:23)
[2023-07-18] MEDS: Carvedilol 25 MG TAB PO SCH (08:23)
[2023-07-18] MEDS: dilTIAZem CD 240 MG CAP PO SCH (08:24)
[2023-07-18] MEDS: Losartan 25 MG TAB PO SCH (08:24)
[2023-07-18] MEDS: Hydrochlorothiazide 25 MG TAB PO SCH (08:24)
[2023-07-18] MEDS: Flecainide Acetate 100 MG TAB PO SCH (08:25)
[2023-07-18 08:26] VITALS: BP 131/78
[2023-07-18 09:22] VITALS: TEMP 97.7
== END 2023-07-18 12:00 | disposition home health service (06) | DRG 329 ==
LOC: ERS 18:13 → ERHOLD 07-11 00:03 → 2NO 07-11 19:48 → T4-B 07-15 22:14
PROVIDERS: ADMIT Emergency Medicine; ATTEND Emergency Medicine
PROC: 0DTG0ZZ Resection of Left Large Intestine, Open Approach (ICD-10-PCS; principal; 2023-07-11)
PROC: 0DJD0ZZ Inspection of Lower Intestinal Tract, Open Approach (ICD-10-PCS; 2023-07-11)
PROC: 0DJD8ZZ Inspection of Lower Intestinal Tract, Via Natural or Artificial Opening Endoscopic (ICD-10-PCS; 2023-07-11)
PROC: 3E033XZ Introduction of Vasopressor into Peripheral Vein, Percutaneous Approach (ICD-10-PCS; 2023-07-11)
DX: K56.609 Unspecified intestinal obstruction, unspecified as to partial versus complete obstruction (principal); K57.31 Diverticulosis of large intestine without perforation or abscess with bleeding; E87.1 Hypo-osmolality and hyponatremia; N17.9 Acute kidney failure, unspecified; K91.89 Other postprocedural complications and disorders of digestive system; K56.7 Ileus, unspecified; K57.30 Diverticulosis of large intestine without perforation or abscess without bleeding; M54.9 Dorsalgia, unspecified; G89.29 Other chronic pain; I48.91 Unspecified atrial fibrillation; R14.0 Abdominal distension (gaseous); F10.90 Alcohol use, unspecified, uncomplicated; K21.9 Gastro-esophageal reflux disease without esophagitis; K59.00 Constipation, unspecified; I12.9 Hypertensive chronic kidney disease with stage 1 through stage 4 chronic kidney disease, or unspecified chronic kidney disease; N18.30 Chronic kidney disease, stage 3 unspecified; D72.829 Elevated white blood cell count, unspecified; R53.81 Other malaise; N32.81 Overactive bladder; Z80.0 Family history of malignant neoplasm of digestive organs; Z90.49 Acquired absence of other specified parts of digestive tract; Z98.890 Other specified postprocedural states; Z87.891 Personal history of nicotine dependence; Z79.899 Other long term (current) drug therapy; Z87.81 Personal history of (healed) traumatic fracture
CPT/HCPCS: 36415; 36416; 74018; 74022; 74177; 80048; 80053; 82805; 83605; 83690; 83735; 84100; 84484; 85025; 85610; 85730; 86850; 86900; 86901; 88307; 93005; 97139; A4314; C1713; J0360; J0694; J1100; J1650; J2270; J2405; J2543; J2704; J3475; J3480; J3490; J7050; J7120; Q9967; S0028

== ENCOUNTER 2023-08-08 09:02 | Emergency (ER) | payer MEDICARE ==
[2023-08-08 10:17] LABS: #Eosinphils 0.1 thou/uL (0.0-0.7); #Monocytes 0.5 thou/uL (0.11-0.59); #Neutrophils 2.8 thou/uL (1.40-6.50); %Basophils 0.7 % (0.0-1.0); %Eosinophils 3.1 % (0.0-10.0); %Lymphocytes 17.2 % (21.0-51.0); %Monocytes 12.7 % (0.0-10.0); %Neutrophils 66.1 % (42.0-75.0); Hematocrit 37.3 % (42.0-52.0); Hemoglobin 12.6 g/dL (14.0-18.0); Mean Corpuscular HGB CONC 33.8 g/dL (32.0-36.0); Mean Corpuscular Hemoglobin 32.5 pg (27.0-31.0); Mean Corpuscular Volume 96.1 fl (78.0-98.0); Mean Platelet Volume 9.5 fL (7.4-10.4); Platelet Count 184 10x3/uL (130-400); RBC Distribution Width 12.8 % (11.5-14.5); Red Blood Cell (RBC) Count 3.88 mill/uL (4.70-6.10); White Blood Cell (WBC) Count 4.3 10x3/uL (4.8-10.8)
[2023-08-08 10:46] LABS: Troponin I Less than 0.010 ng/mL (< 0.028)
[2023-08-08 10:47] LABS: ALT (SGPT) 15 U/L (8-55); AST (SGOT) 23 U/L (5-34); Alkaline Phosphatase 63 U/L (40-110); Anion Gap 9 mmol/L (10-20); BUN (Urea Nitrogen) 15 mg/dL (8.4-25.7); Bilirubin, Total 0.6 mg/dL (0.2-1.2); Calc. Creatinine Clearance 0 mL/min (70-130); Calcium 8.6 mg/dL (7.8-10.44); Carbon Dioxide 20 mmol/L (23-31); Chloride 102 mmol/L (98-107); Estimated GFR 61; Globulin 2.6 g/dL (2.4-3.5); Glucose 106 mg/dL (83-110); Lipase 64 U/L (8-78); Potassium 4.4 mmol/L (3.5-5.1); Protein, Total 5.6 g/dL (5.8-8.1); Sodium 127 mmol/L (136-145)
[2023-08-08] MEDS ORDERED: Iopamidol-370 76% 500 ML MDV (1 ML CHARGE) ONE (11:03)
== END 2023-08-08 12:48 | disposition home or self-care (01) ==
LOC: ERS 09:02
DX: E86.0 Dehydration (principal); I48.91 Unspecified atrial fibrillation; Z79.01 Long term (current) use of anticoagulants; Z87.891 Personal history of nicotine dependence
CPT/HCPCS: 36415; 71045; 74177; 80053; 83690; 84484; 85025; 93005; 96360; Q9967